=== PATIENT | male | born 1960 | race Caucasian/White ===

== ENCOUNTER 2020-08-22 07:30 | Emergency (ER) | payer BC, SELFPAY ==
[2020-08-22 07:42] VITALS: BP 166/76; PULSE 74; RESP 18; TEMP 36.1; O2SAT 100
[2020-08-22 07:56] VITALS: BP 162/82
--- NOTE | 2020-08-22 08:35 | ECG_ITS ---
Measurements Intervals [place] Rate: 74 P: 53 TN: 144 QRS: 10 QRSD: 90 T: 18 QT: 384 QTc: 428 Interpretive Statements SINUS RHYTHM BASELINE WANDER- III, AVR, AVL, AVF NORMAL ECG Electronically Signed On 08-22-2020 8:46:02 CDT by Helder Fierro D.O.
[2020-08-22 09:00] LABS: Basophils Percent Auto 0.5 % (0.2-1.2); Eosinophils Absolute Auto 0.1 K/mm3 (0-0.3); Eosinophils Percent Auto 1.6 % (0-4.4); Hematocrit 42.2 % (42.0-52.0); Hemoglobin 14.5 g/dL (14.0-18.0); Immature Granulocyte Absolute 0.02 K/mm3 (0.00-0.031); Immature Granulocyte Percent A 0.3 % (0-0.5); Mean Corpuscular HGB Conc 34.4 g/dl (32-36); Mean Corpuscular Hemoglobin 28.7 pg (26-34); Mean Corpuscular Volume 83.4 fl (80-100); Mean Platelet Volume 9.6 fl (7.4-10.4); Monocytes Absolute Auto 0.6 K/mm3 (0.1-0.6); Monocytes Percent Auto 8.8 % (2.6-8.5); Neutrophils Absolute Auto 4.1 K/mm3 (1.3-6.7); Neutrophils Percent Auto 64.8 % (45.5-73.1); Platelet Count Result 233 k/mm3 (150-375); Red Blood Count 5.06 M/mm3 (4.6-6.20); Red Cell Distribution Width 13.2 % (11.5-14.5); White Blood Count 6.3 K/mm3 (4.5-10.0)
[2020-08-22 09:12] LABS: Anion Gap 7 mmol/L (8-16); Blood Urea Nitrogen 19 mg/dL (9-20); Calcium 9.3 mg/dL (8.4-10.2); Carbon Dioxide 27 mmol/L (22-30); Chloride 106 mmol/L (98-107); Estimated CRCL calculation 92 ml/min; Estimated Glomerular Filt Rate > 60; Glucose 104 mg/dL (75-110); Potassium 3.9 mmol/L (3.4-5.0); Sodium 140 mmol/L (137-145)
[2020-08-22 09:24] LABS: Troponin I < 0.012 ng/mL (0.000-0.034)
--- NOTE | 2020-08-22 10:11 | ED.RECABL ---
HPI - Recheck/Abnormal Lab/Rx General Chief Complaint: Recheck/Abnormal Lab/Rx Stated Complaint: high blood pressure, h/a Time Seen by Provider: 08/22/20 08:22 Source: patient Mode of arrival: ambulatory Limitations: no limitations History of Present Illness HPI narrative: 60-year-old patient with a complaint of high blood pressure Patient did a couple of blood pressure checks at home and at [facility] with readings of roughly 160/90 Recently relocated to the area from [place] and had an dog control officer there but has not reestablished with somebody here yet There are really no other complaints, denies headache chest pain neurologic symptoms Of note there is a history of a nephrectomy 6 or 7 years ago for renal cell cancer and was reportedly followed up and cancer free and discharged Also reports a recent history of approximately 40 pound weight gain attributed to general inactivity and not eating right, as well as some anxiety and stress Related Data Allergies Allergy/AdvReac Type Severity Reaction Status Date / Time No Known Allergies Allergy Verified 08/22/20 07:55 Review of Systems Review of Systems: All systems reviewed & are unremarkable except as noted in HPI and below Constitutional: Constitutional: Denies chills, Denies fatigue, Denies fever(s), Denies headache(s) and Denies weakness Eyes: Eyes: Reports no additional eye complaints and Denies change in vision ENT: Denies headache(s), Denies epistaxis, Denies nasal congestion and Denies sore throat Cardiovascular: Cardiovascular: Denies chest pain, Denies leg edema, Denies palpitations and Denies dyspnea Respiratory: Respiratory: Denies cough and Denies dyspnea Gastrointestinal: Gastrointestinal: Denies abdominal pain, Denies nausea and Denies vomiting Genitourinary: Genitourinary: Denies hematuria, Denies dysuria and Denies urinary frequency Musculoskeletal: Musculoskeletal: Denies deformity, Denies muscle weakness and Denies numbness Integumentary/Breasts: Skin/Breast: Denies wounds Neurologic: Denies headache(s) and Denies focal weakness Psychiatric: Psychiatric: Reports no additional psychiatric complaints Endocrine: Endocrine: Denies palpitations PMFSH Social History Social History Gender identity (if verbalized by the patient): Other Exam Const: General: no acute distress, well developed and awake Nutritional Appearance: obese Orientation/consciousness: patient oriented x3 (alert) HENMT: Head: normocephalic and atraumatic Ears: external ears normal General nose exam: No nasal discharge present and no epistaxis Face and sinus: face symmetric Eyes: Conjunctivae: conjunctivae normal Sclera: sclerae normal EOM: EOMs intact bilaterally Neck: Neck: normal visual inspection, supple and no JVD Chest: Chest palpation & inspection: deferred Resp: Effort & Inspection: normal respiratory effort Auscultation: clear to auscultation bilaterally and other (BS =) Cardio: Rate: regular rate Rhythm: regular rhythm Heart sounds: no gallops GI: Inspection: normal to inspection GI Palp: Yes Soft to palpation and No Tenderness to palpation present (GI) Other: Soft, nontender Back/Spine/Pelvis: Thoracic/Lumbar Spine: thoracic and lumbar spine normal to inspection Skin: General skin exam: normal color and no rashes or lesions noted Neuro: General: patient oriented x3 (alert) and moves all extremities Cranial nerves: Yes facial symmetry Speech: normal speech Extrem: General: normal to inspection, full ROM and no pedal edema Psych: Affect: normal affect Course Vital Signs Vital signs: Vital Signs Temperature 36.1 C L 08/22/20 07:42 Pulse Rate 74 08/22/20 07:42 Respiratory Rate 18 08/22/20 07:42 Blood Pressure 166/76 H 08/22/20 07:42 Pulse Oximetry 100 08/22/20 07:42 Temperature 36.1 C L 08/22/20 07:42 Pulse Rate 74 08/22/20 07:42 Respiratory Rate 18 08/22/20 07:42 Blood Pressure 162/82 H 08/22/20 07:56 Pulse
[2020-08-22 10:34] VITALS: BP 161/84
[2020-08-22 10:36] VITALS: BP 167/87
== END 2020-08-22 10:36 | disposition home or self-care (01) ==
PROVIDERS: Emergency Provider Emergency Medicine
DX: I10 Essential (primary) hypertension (principal); Z90.5 Acquired absence of kidney; Z85.528 Personal history of other malignant neoplasm of kidney
CPT/HCPCS: 36415; 80048; 84484; 85025; 93005; 99284

== ENCOUNTER 2022-06-20 09:04 | Emergency (ER) | payer BC, SELFPAY ==
--- NOTE | ~2022-06-20 | XR_ITS ---
EXAMINATION: XR toe 1st LT min 2V DATE: 06/20/2022 10:04 INDICATION: Left great toe injury and pain. TECHNIQUE: 4 views of left great toe were obtained. COMPARISON: None. FINDINGS: Bone alignment is normal. No fracture. There is mild osteoarthritis of first metatarsophala ngeal joint and first interphalangeal joint. IMPRESSION: 1. Mild polyarticular osteoarthritis. Reviewed, dictated and finalized at location A. MANAGER
--- NOTE | 2022-06-20 09:10 | ED.LOWEXIN ---
HPI - Extremity Injury (Lower) General Chief Complaint: Extremity Injury, Lower <Candi Romo APRN - Last Filed: 06/20/22 10:11> Stated Complaint: toe injury <Candi Romo APRN - Last Filed: 06/20/22 10:11> Time Seen by Provider: 06/20/22 09:15 <Candi Romo APRN - Last Filed: 06/20/22 10:11> Source: patient, RN notes reviewed and old records reviewed <Candi Romo APRN - Last Filed: 06/20/22 10:11> Mode of arrival: ambulatory <Candi Romo APRN - Last Filed: 06/20/22 10:11> Limitations: no limitations <Candi Romo APRN - Last Filed: 06/20/22 10:11> History of Present Illness HPI Narrative: 62-year-old presents to the [facility] complaints left great toe pain. reposts that he jammed His toe 3 nights ago. states that he stubbed his toe a crib 3 nights ago. Has been icing it. pain over the MTP joint. Pain with movement, pain with walking. mild swelling noted. No bruising noted decreased range of motion sensation intact distal to injury <Candi Romo APRN - Last Filed: 06/20/22 10:11> Onset (ago): day(s) (3) <Candi Romo APRN - Last Filed: 06/20/22 10:11> Injury: Left: toes (great toe) <Candi Romo APRN - Last Filed: 06/20/22 10:11> Related Data Home Medications: Home Medications Medication Instructions Recorded Confirmed No Home Medications 06/20/22 06/20/22 <Candi Romo APRN - Last Filed: 06/20/22 10:11> Allergies/Adverse Reactions: Allergies Allergy/AdvReac Type Severity Reaction Status Date / Time No Known Allergies Allergy Verified 08/22/20 07:55 <Candi Romo APRN - Last Filed: 06/20/22 10:11> Review of Systems Review of Systems: All systems reviewed & are unremarkable except as noted in HPI and below <Candi Romo APRN - Last Filed: 06/20/22 10:11> Constitutional: Constitutional: Reports no additional constitutional complaints <Candi Romo APRN - Last Filed: 06/20/22 10:11> Musculoskeletal: Musculoskeletal: Reports as per HPI, Reports arthralgias ( MTP left great toe) and Reports joint swelling ( MTP left great toe) <Candi Romo APRN - Last Filed: 06/20/22 10:11> Integumentary/Breasts: Skin/Breast: Reports system reviewed and no additional complaints, except as docu <Candi Romo BIOINFORMATICS ANALYST - Last Filed: 06/20/22 10:11> Neurologic: Reports system reviewed and no additional complaints, except as documented <Candi Romo APRN - Last Filed: 06/20/22 10:11> Psychiatric: Psychiatric: Reports no additional psychiatric complaints <Candi Romo APRN - Last Filed: 06/20/22 10:11> Allergic/Immunologic: Allergic/Immunologic: Reports no additional allergic/immunologic complaints <Candi Romo BIOINFORMATICS ANALYST - Last Filed: 06/20/22 10:11> PMFSH Surgical History Surgical History: Surgical History (Updated 06/20/22 @ 09:28 by Candi Romo APRN) History of nephrectomy, left due to cancer <Candi Romo APRN - Last Filed: 06/20/22 10:11> Social History Social History: Social History Gender identity (if verbalized by the patient): Other <Candi Romo APRN - Last Filed: 06/20/22 10:11> Comments At the time of my signature, I reviewed and agree with the nursing past medical, surgical, social, and family history. There is no relevant family history pertinent to the patient complaint. <Candi Romo APRN - Last Filed: 06/20/22 10:11> Exam Const: General: cooperative, healthy appearing, comfortable, no acute distress, well developed, alert and well nourished <Candi Romo APRN - Last Filed: 06/20/22 10:11> Nutritional Appearance: well nourished <Candi Romo BIOINFORMATICS ANALYST - Last Filed: 06/20/22 10:11> Orientation/consciousness: patient oriented x3 <Candi Romo, BIOINFORMATICS ANALYST - Last Filed: 06/20/22 10:11> Limitations: no limitations <Candi Romo, BIOINFORMATICS ANALYST - Last Filed: 06/20/22 10:11> HENMT: Head: normal to inspection <Candi Romo, BIOINFORMATICS ANALYST - Last Filed: 0
[2022-06-20 09:20] VITALS: BP 145/70; PULSE 69; RESP 20; TEMP 36.6; O2SAT 100
== END 2022-06-20 10:16 | disposition home or self-care (01) ==
PROVIDERS: Emergency Provider Nurse Practitioner
DX: M19.072 Primary osteoarthritis, left ankle and foot (principal); Z85.528 Personal history of other malignant neoplasm of kidney; Z90.5 Acquired absence of kidney
CPT/HCPCS: 73660; 99213; G0463